=== PATIENT | female | born 1990 | race Caucasian/White ===

== ENCOUNTER 2024-09-07 22:18 | Emergency (ER) | payer MEDICAID, SELFPAY ==
[2024-09-07 22:20] VITALS: BP 168/115
--- NOTE | 2024-09-07 22:59 | ED.MUSCINJ ---
HPI-Injury
General
Chief Complaint: Musculo-Skeletal Complaint
Source: patient
Exam Limitations: none
Time Seen by Provider: 09/07/24 22:52
Nursing documentation reviewed up to this point in time: agreed with
History of Present Illness-Injury
Initial Injury comments:
34-year-old female [place] when she stepped in a hole and twisted her right ankle. She has swelling in the lateral aspect of her ankle and cannot weight-bear without significant pain
Past History
Past History
ED Past Medical History: Asthma
ED Past Surgical History: Tonsilectomy
Social History
Tobacco: Smoker
Alcohol: None
Drug: None
Personal: Single
Living: with family
Employment: Not employed
Family History
Family History: Other (Colon cancer, prostate cancer, meningioma, coronary disease)
Review of Systems
Review of Systems
Allergies reviewed?: Yes
All Other Systems: ROS reviewed and negative except as documented in HPI and ROS
Musculoskeletal: Reports other (Right ankle pain and swelling)
Skin: Reports no symptoms
Musculoskeletal Injury Exam
Musculoskeletal Injury Exam
Right Ankle:
Pain with Movement?: Moderate
Tender to palpation?: Moderate
Soft tissue swelling?: Moderate (Laterally)
External deformity and angulation?: None
Strain- Sprain- Tear (Connective tissue injury)?: Moderate
Crepitus with movement?: No
Joint instability?: No
Malalignment/deformity?: No
Range of motion: Limited
Distal skin color and temperature: normal-warm & good color
Capillary Refill: normal
Normal distal neurovascular exam?: Yes
Phy Exam
Physical Exam
Physical Exam:
PHYSICAL EXAMINATION:
General: no apparent distress, not acutely ill
Neuro: alert and oriented.
Psychiatric: well kept. interactive and cooperative
Musculoskeletal: Moves with ease
Skin: Warm, pink.
Injury Course
Orders/Labs/Results
Orders:
Orders
09/07/24 22:26
CR Ankle - Right Min 3 Views * Urgent
Comment:
Reason For Exam: fall, injury
CR Foot - Right Min 3 Views Urgent
Comment:
Reason For Exam: fall, injury
MDM/Problems Addressed
Differential Diagnosis Includes:
Sprain versus fracture ankle
MDM/Problems Addressed:
34-year-old female states she was [place] earlier today when she stepped in a hole and twisted her right ankle. She has swelling in the lateral aspect of her ankle and cannot weight-bear without significant pain
X-ray right foot and ankle: Initially read by this examiner: No acute fracture, lateral soft tissue swelling.
Ortho boot applied and patient states ankle was more painful so it was removed
Milan wrap and air splint applied and pt does not want them, she declines when crutches offered. States she's been walking on it all day and will rest and elevate over the weekend.
Milan wrap applied.
Referred to orthopedics as needed.
*Critical Care Note
Total Time (30-74mins, 75-104mins- exclusive of procedures): Not Applicable
ED Attending Note
-
Portions of this chart may have been created with voice recognition software.� Occasional wrong word or��sound alike� substitutions may have occurred due to the inherent limitations of voice recognition software.
Discharge Plan
Departure
Patient Disposition: Home (Routine Discharge)
Date of Disposition: 09/07/24
Time of Disposition: 23:03
Patient with high blood pressure during this ER visit?: No
Condition: Good
Discharge Problem:
Right ankle sprain
Instructions: Using Cold for Pain, Ankle Sprain ED
Prescriptions:
No Action
cyclobenzaprine 10 MG tablet
10 mg PO HSPRN PRN (Reason: sleep)
Hair, Skin, Nails with Biotin 7.5-7.5-1,250 mg-unit-mcg Tablet,Chewable
1 tab PO DAILY
dibucaine 1 APPLIC ointment
1 applic topical TID PRN (Reason: hemorrhoid)
Rx Instructions:
HEMORRHOIDAL PAIN
ondansetron 4 mg tablet,disintegrating
4 mg PO Q8H Qty: 9 0RF
meclizine [Antivert] 25 mg tablet,chewable
25 mg PO Q8HPRN PRN (Reason: nausea or vertigo) Qty: 15 0RF
Referrals:
Yuri Gonzalez MD [Active] - As needed
Activity Restrictions/Additional Instructions:
As we discussed, Wear the milan wrap as needed for comfort, support, swelling
See the orthopedic doctor if not a LOT BETTER in two weeks.
Tylenol or Ibuprofen as needed for pain.
Interventions
Interventions:
*Risk Screen - Suicide Last Done: 09/07/24 22:24
*General Assessment Last Done: 09/07/24 23:37
*Neglect/Abuse Screening Last Done: 09/07/24 22:24
*ED COVID-19 Vaccine History Last Done: 09/07/24 22:24
*Nursing Disposition Last Done: 09/07/24 23:39
ED-Musculoskeletal Assessment Last Done: 09/07/24 23:37
Discharge Date and Time
Discharge Date/Time: 09/07/24 23:40
Print Language: DOMINICAN
[2024-09-07 23:39] VITALS: BP 136/88
== END 2024-09-07 23:40 | disposition home or self-care (01) ==
LOC: EMR 22:18
PROVIDERS: EMERGENCY PHYSICIAN Emergency Medicine; FAMILY PHYSICIAN General Practice
DX: S93.401A Sprain of unspecified ligament of right ankle, initial encounter (principal); X50.1XXA Overexertion from prolonged static or awkward postures, initial encounter; J45.909 Unspecified asthma, uncomplicated; F17.200 Nicotine dependence, unspecified, uncomplicated; Y93.01 Activity, walking, marching and hiking; Z82.49 Family history of ischemic heart disease and other diseases of the circulatory system
CPT/HCPCS: 99283; 73610; 73630

== ENCOUNTER 2025-01-10 20:32 | Emergency (ER) | payer MEDICAID, SELFPAY ==
[2025-01-10 20:34] VITALS: BP 159/107
--- NOTE | 2025-01-10 23:57 | ED.GENMED ---
History of Present Illness
General
Chief Complaint: Skin Problem
Time Seen by Provider: 01/10/25 23:44
History of Present Illness
History of Present Illness:
34-year-old female presents the emergency department for evaluation of urticarial skin lesions on the hands and feet beginning yesterday. She has a history of intermittent urticaria that have been developing frequently since September without
obvious trigger. Denies any new soaps, detergents, topical products, or medications. She is on daily famotidine and fexofenadine hydrochloride as well as as needed hydroxyzine at the discretion of her primary care physician. She reports despite
these medications she is remains itchy. Denies any difficulty breathing or chest tightness
Past History
Past History
ED Past Medical History: Asthma
ED Past Surgical History: Tonsilectomy
Social History
Tobacco: Smoker
Alcohol: None
Drug: None
Personal: Single
Living: with family
Employment: Not employed
Family History
Family History: Other (Colon cancer, prostate cancer, meningioma, coronary disease)
Review of Systems
Review of Systems
Allergies reviewed?: Yes
Phy Exam
Physical Exam
Physical Exam:
GEN: Well appearing, NAD, WDWN
HEENT: Oral mucosa moist, no scleral icterus
Cardiac: Regular rate
Lung: No respiratory distress, no tachypnea
MSK: No gross deformity or injuries
Skin: Good color, no pallor or jaundice, urticarial lesions widespread to bilateral hands and feet, they do involve the palms and soles, spreading up to the upper extremities, scant abdominal involvement
Neuro: AO x3, moves all extremities freely
Psych: Calm, cooperative
Course
Orders/Labs/Results
Orders:
Orders
01/10/25 23:57
Dexamethasone Sod Phosphate [Decadron] 10 mg IM NOW STA
Vital Signs
Initial and Last Documented VS:
Initial Vital Signs
Temp Pulse Resp BP Pulse Ox
98.9 F 92 18 159/107 98
01/10/25 20:34 01/10/25 20:34 01/10/25 20:34 01/10/25 20:34 01/10/25 20:34
Last Documented Vital Signs
Temp Pulse Resp BP Pulse Ox
98.9 F 92 18 159/107 98
01/10/25 20:34 01/10/25 20:34 01/10/25 20:34 01/10/25 20:34 01/10/25 20:34
MDM/Problems Addressed
MDM/Problems Addressed:
Unclear etiology to patient's symptoms, will treat with steroids, she has outpatient allergy follow-up in just over 1 month
*Critical Care Note
Total Time (30-74mins, 75-104mins- exclusive of procedures): Not Applicable
ED Attending Note
-
Portions of this chart may have been created with voice recognition software.� Occasional wrong word or��sound alike� substitutions may have occurred due to the inherent limitations of voice recognition software.
Discharge Plan
Departure
Patient Disposition: Home (Routine Discharge)
Date of Disposition: 01/10/25
Time of Disposition: 23:58
Patient with high blood pressure during this ER visit?: No
Discharge Problem:
Urticaria
Instructions: Hives
Prescriptions:
New
prednisone 20 mg tablet
60 mg PO DAILY 6 Days Qty: 18 0RF
No Action
cyclobenzaprine 10 MG tablet
10 mg PO HSPRN PRN (Reason: sleep)
Hair, Skin, Nails with Biotin 7.5-7.5-1,250 mg-unit-mcg Tablet,Chewable
1 tab PO DAILY
dibucaine 1 APPLIC ointment
1 applic topical TID PRN (Reason: hemorrhoid)
Rx Instructions:
HEMORRHOIDAL PAIN
ondansetron 4 mg tablet,disintegrating
4 mg PO Q8H Qty: 9 0RF
meclizine [Antivert] 25 mg tablet,chewable
25 mg PO Q8HPRN PRN (Reason: nausea or vertigo) Qty: 15 0RF
Referrals:
Becca Ramirez, DO [Family Provider] -
Interventions
Interventions:
*Risk Screen - Suicide Last Done: 01/10/25 20:34
*General Assessment Last Done: 01/10/25 20:34
*Neglect/Abuse Screening Last Done: 01/10/25 20:34
*ED COVID-19 Vaccine History Last Done: 01/10/25 20:34
*Nursing Disposition Last Done: 01/11/25 00:17
ED-Skin Assessment Last Done: 01/11/25 00:16
Discharge Date and Time
Discharge Date/Time: 01/11/25 00:17
Print Language: ROMANIAN
[2025-01-11] MEDS: DECADRON 10 MG IM (00:06)
== END 2025-01-11 00:17 | disposition home or self-care (01) ==
LOC: EMR 20:32
PROVIDERS: EMERGENCY PHYSICIAN Student in an Organized Health Care Education/Training Program; FAMILY PHYSICIAN Family Medicine
DX: L50.9 Urticaria, unspecified (principal); J45.909 Unspecified asthma, uncomplicated; F17.200 Nicotine dependence, unspecified, uncomplicated
CPT/HCPCS: 96372; 99284

== ENCOUNTER 2025-03-18 20:26 | Emergency (ER) | payer OTHER, SELFPAY ==
[2025-03-18 20:37] VITALS: BP 141/101
[2025-03-18 21:13] LABS: Hematocrit 40.6 % (37.0-47.0); Hemoglobin 12.6 g/dL (12.0-16.0); Mean Corpuscular Hgb 22.7 pg (27.0-31.0); Mean Platelet Volume 8.9 fL (7.4-10.4); Platelet Count 480 10^3/uL (130-400); Red Blood Cell Count 5.56 10^6/uL (4.20-5.40); Red Cell Dist. Width 16.4 % (11.5-14.5); White Blood Cell Count 10.8 10^3/uL (4.8-10.8)
[2025-03-18 21:25] LABS: ALT (SGPT) 17 U/L (0-35); AST (SGOT) 17 U/L (14-36); Albumin 4.6 g/dl (3.5-5.0); Alkaline Phosphatase 57 U/L (38-126); Blood Urea Nitrogen 13 mg/dl (7-17); Calcium 9.8 mg/dl (8.4-10.2); Carbon Dioxide 25 mmol/L (22-30); Chloride 104 mmol/L (98-107); Glucose 91 mg/dl (70-99); Potassium 4.8 mmol/L (3.5-5.1); Sodium 140 mmol/L (135-145); Total Bilirubin 0.5 mg/dl (0.2-1.3); Total Protein 7.8 g/dl (6.3-8.2); eGFR > 60.00
[2025-03-18 21:30] LABS: % Basophils 0.8 % (0-2); % Eosinophils 2.6 % (0-6); % Immature Granulocytes 0.4 % (0-0.5); % Lymphocytes 42.2 % (20.5-51.1); % Monocytes 6.7 % (1.7-9.3); % Neutrophils 47.3 % (42.2-75.2); Absolute Basophils 0.1 10^3/uL (0-0.2); Absolute Eosinophils 0.3 10^3/uL (0-0.7); Absolute Lymphocytes 4.6 10^3/uL (1.2-3.4); Absolute Monocytes 0.7 10^3/uL (0.1-0.6); Absolute Neutrophils 5.1 10^3/uL (1.4-6.5); Nucleated Red Blood Cells % 0 %
[2025-03-18 21:37] LABS: Erythrocyte Sed Rate 14 mm/hour (0-20)
--- NOTE | 2025-03-18 22:59 | ED.GENMED ---
History of Present Illness
General
Chief Complaint: Skin Problem
Source: patient and records
Exam Limitations: none
Time Seen by Provider: 03/18/25 22:47
Nursing documentation reviewed up to this point in time: agreed with
History of Present Illness
History of Present Illness:
35-year-old female with history as documented notable for recurrent urticaria/hives presents to the emergency department for evaluation of hives and pruritus. Patient has had recurrent hives and follows with an ergonomics consultant. She says that she has
been doing intermittent prednisone when hives flareup. She says that 11 days ago she started with hives once again. She spoke with her ergonomics consultant who prescribed a prednisone taper starting at 40 mg daily�she took this for 4 days but did not have
any improvement and so dose was increased to 60 mg x 5 days; she took total of 9 days worth of prednisone but she says symptoms have worsened despite this and so she stopped taking prednisone. She has also been taking antihistamines but having
trouble controlling her pruritus and hives have continued so she came to the ER. She has not had any cough or breathing difficulties, wheezing. She denies any GI symptoms. She denies any oral lesions. She denies any other complaints. She has
not had any new exposures�no new skin care products, detergents, etc.
Past History
Past History
ED Past Medical History: Asthma
ED Past Surgical History: Tonsilectomy
Social History
Tobacco: Smoker
Alcohol: None
Drug: None
Personal: Single
Living: with family
Employment: Not employed
Family History
Family History: Other (Colon cancer, prostate cancer, meningioma, coronary disease)
Review of Systems
Review of Systems
All Other Systems: ROS reviewed and negative except as documented in HPI and ROS
Constitutional: Denies fever
Respiratory: Denies cough or trouble breathing
ABD/GI: Denies abdominal pain, nausea, vomiting or diarrhea
Skin: Reports itching and rash
Phy Exam
Physical Exam
Physical Exam:
General: Awake, alert, oriented x3; no acute distress
Head: Normocephalic, atraumatic
Eyes: Conjunctiva normal
Throat: Airway intact, handling secretions, no oral lesions
Neck: Trachea midline, supple without meningismus
Lungs: Clear to auscultation bilaterally, no wheezing, rales, rhonchi
Heart: Regular rate and rhythm, no murmurs, gallops, or rubs
Abd: Soft, non distended, nontender
Neuro: No gross deficits
Skin: Patient has scattered hives across chest, back, arms and legs, abdomen with some scattered hives along the hairline as well
Extremities: Hives but otherwise no edema and warm and with good distal perfusion
Scores
Heart Failure Risk
Heart Failure Risk Score: Not Applicable
Heart Score for Chest Pain Patients
STEMI patient?: Not applicable
Withdrawal Assessment of Alcohol
Withdrawal Assessment Completed?: Not applicable
Course
Orders/Labs/Results
Orders:
Orders
03/18/25 20:57
C-Reactive Protein Urgent
Complete Blood Count/With Diff Urgent
Comprehensive Metabolic Panel Urgent
Sed Rate [Erythrocyte Sed Rate] Urgent
03/18/25 22:57
Dexamethasone Sod Phosphate [Decadron] 10 mg IM NOW STA
EPINEPHrine PF [Adrenalin] 0.3 mg IM NOW STA
Loratadine [Claritin] 10 mg PO NOW STA
03/18/25 23:21
Ondansetron Orally Disint [Zofran Odt (Orally Disintegrating)] 4 mg .ROUTE .STK-MED ONE
03/18/25 23:24
Ondansetron Orally Disint [Zofran Odt (Orally Disintegrating)] 4 mg PO NOW STA
Abnormal Lab Results
03/18/25
20:57
RBC 5.56 H 10^6/uL
(4.20-5.40)
MCV 73.0 L fL
(81.0-99.0)
MCH 22.7 L pg
(27.0-31.0)
MCHC 31.0 L g/dL
(33.0-37.0)
RDW 16.4 H %
(11.5-14.5)
Plt Count 480 H 10^3/uL
(130-400)
Absolute Lymphs (auto) 4.6 H 10^3/uL
(1.2-3.4)
Absolute Monos (auto) 0.7 H 10^3/uL
(0.1-0.6)
C-Reactive Protein 15.60 H mg/L
(0.0-10.00)
03/18/25 20:57
03/18/25 20:57
Vital Signs
Initial and Last Documented VS:
Initial Vital Signs
Temp Pulse Resp BP Pulse Ox
36.8 C 94 19 141/101 100
03/18/25 20:37 03/18/25 20:37 03/18/25 20:37 03/18/25 20:37 03/18/25 20:37
Last Documented Vital Signs
Temp Pulse Resp BP Pulse Ox
36.8 C 88 18 141/101 95
03/18/25 20:37 03/19/25 00:25 03/19/25 00:25 03/18/25 20:37 03/19/25 00:25
MDM/Problems Addressed
Differential Diagnosis Includes:
Autoimmune process, postviral urticaria, allergic exposure
MDM/Problems Addressed:
35-year-old female presents with urticaria�has had recurrent episodes chronically. This episode is not responding to steroids or antihistamines. She has no respiratory or GI symptoms to suggest anaphylaxis however given failure to respond to
conservative measures and concern for hypersensitivity type reaction, I think a trial of intramuscular epinephrine is not unreasonable for some acute relief. Can also give IM Decadron and treat with Zyrtec. Reassess after the above.
No significant improvement with epinephrine or other medications here. Patient does not want to continue steroids because she feels they are not helping. She has already been using antihistamines. I explained that we can trial some topical
medications for pruritus. She should follow-up with her ergonomics consultant and datawarehouse developer. Spoke about return precautions all questions answered.
*Pulse Oximetry
Patient hypoxic: no
*Critical Care Note
Total Time (30-74mins, 75-104mins- exclusive of procedures): Not Applicable
Data Reviewed
Source: patient and records
ED Attending Note
-
Portions of this chart may have been created with voice recognition software.� Occasional wrong word or��sound alike� substitutions may have occurred due to the inherent limitations of voice recognition software.
Discharge Plan
Departure
Patient Disposition: Home (Routine Discharge)
Date of Disposition: 03/19/25
Time of Disposition: 00:46
Patient with high blood pressure during this ER visit?: Yes
Discharge Problem:
Urticaria
Instructions: Chronic hives
Prescriptions:
New
calamine phenolated Lotion
1 applic topical TID PRN (Reason: itching) Qty: 177 0RF
lidocaine 5 % adhesive patch,medicated
1 patch topical DAILY Qty: 15 0RF
No Action
cyclobenzaprine 10 MG tablet
10 mg PO HSPRN PRN (Reason: sleep)
Hair, Skin, Nails with Biotin 7.5-7.5-1,250 mg-unit-mcg Tablet,Chewable
1 tab PO DAILY
dibucaine 1 APPLIC ointment
1 applic topical TID PRN (Reason: hemorrhoid)
Rx Instructions:
HEMORRHOIDAL PAIN
ondansetron 4 mg tablet,disintegrating
4 mg PO Q8H Qty: 9 0RF
meclizine [Antivert] 25 mg tablet,chewable
25 mg PO Q8HPRN PRN (Reason: nausea or vertigo) Qty: 15 0RF
prednisone 20 mg tablet
60 mg PO DAILY 6 Days Qty: 18 0RF
Referrals:
Becca Ramirez, DO [Family Provider] - Follow up in 5-7 days
Activity Restrictions/Additional Instructions:
Thank you for visiting the Emergency Department at [facility].
1. Please schedule a follow up appointment as directed. Call first thing tomorrow morning to make an appointment.
2. If indicated, please take your medications as instructed and indicated on discharge paperwork.
3. If any of your symptoms do not improve, or persist, or become more severe within 6-12 hours, please return to the emergency department for further care.
4. Please return to the emergency department if you develop a headache, neck pain/stiffness, fever greater than 100.4F, chest pain, shortness of breath, persistent nausea, vomiting, slurred speech, difficulty walking, numbness/tingling, weakness,
signs of infection or any other symptoms that are worrisome to you.
Please call [phone] if you have any questions.
Interventions
Interventions:
*Risk Screen - Suicide Last Done: 03/18/25 20:41
*General Assessment Last Done: 03/18/25 20:41
*Neglect/Abuse Screening Last Done: 03/18/25 20:41
*ED COVID-19 Vaccine History Last Done: 03/18/25 20:41
ED-Skin Assessment Last Done: 03/18/25 22:47
Discharge Date and Time
Print Language: KINYARWANDA
[2025-03-18] MEDS: ADRENALIN 0.3 MG IM (23:09)
[2025-03-18] MEDS: CLARITIN 10 MG PO (23:10)
[2025-03-18] MEDS: DECADRON 10 MG IM (23:10)
[2025-03-18] MEDS: ZOFRAN ODT (ORALLY DISINTEGRATING) 4 MG PO (23:24)
--- NOTE | 2025-03-19 00:23 | EDRN ---
patient states that she feels like her hives are still the same and itchy, informed Dr. Garay
== END 2025-03-19 01:11 | disposition home or self-care (01) ==
LOC: EMR 20:26
PROVIDERS: Emergency Medicine; EMERGENCY PHYSICIAN Emergency Medicine; FAMILY PHYSICIAN Family Medicine
DX: L50.9 Urticaria, unspecified (principal); L29.9 Pruritus, unspecified; R03.0 Elevated blood-pressure reading, without diagnosis of hypertension; J45.909 Unspecified asthma, uncomplicated; K58.9 Irritable bowel syndrome, unspecified; F41.9 Anxiety disorder, unspecified; F32.A Depression, unspecified; F60.3 Borderline personality disorder; M47.816 Spondylosis without myelopathy or radiculopathy, lumbar region; F17.200 Nicotine dependence, unspecified, uncomplicated; Z91.51 Personal history of suicidal behavior; Z88.1 Allergy status to other antibiotic agents; Z91.030 Bee allergy status; Z91.018 Allergy to other foods
CPT/HCPCS: 99284; 96372 ×2; 80053; 85025; 85652; 86140

== ENCOUNTER 2025-03-21 10:33 | Emergency (ER) | payer OTHER, SELFPAY ==
[2025-03-21 10:44] VITALS: BP 119/88
--- NOTE | 2025-03-21 12:48 | ED.GENMED ---
History of Present Illness
General
Chief Complaint: Skin Problem
Source: patient
Time Seen by Provider: 03/21/25 12:32
History of Present Illness
History of Present Illness:
35-year-old female presents to the emergency room complaining of itchy urticarial rash. Patient has been suffering from this rash intermittently for the past 6 months or so. She has been evaluated by an leather colorer. She has been taking Diana,
courses of steroids and famotidine without improvement. At this point she really does not want to take steroids any longer because they do not seem to help and she is concerned about side effects. Patient has been seen here in the emergency room
intermittently for this. She was seen here couple days ago had a dose of IM epi which did help for a day or 2. The rash has returned. She called her leather colorer today and was unable to speak with them. She denies any shortness of breath. She
denies any throat or mouth swelling. She denies any nausea or vomiting.
Past History
Past History
ED Past Medical History: Asthma
ED Past Surgical History: Tonsilectomy
Social History
Tobacco: Smoker
Alcohol: None
Drug: None
Personal: Single
Living: with family
Employment: Not employed
Family History
Family History: Other (Colon cancer, prostate cancer, meningioma, coronary disease)
Phy Exam
Physical Exam
Physical Exam:
General: Awake, Alert, Oriented X3. No acute distress.
Vitals: unremarkable
Head: Atraumatic
Eyes: Pupils equal, EOMI
Throat: Airway intact, no exudates, no angioedema
Neck: Trachea midline
Lungs: Clear and equal b/l
Heart: Regular rate, no murmurs
Neuro: Nonfocal
Skin: Warm, dry, diffuse small urticarial lesions.
Extremities: pulses equal b/l, no edema
Course
Orders/Labs/Results
Orders:
Orders
03/21/25 12:46
EPINEPHrine PF [Adrenalin] 0.3 mg IM NOW STA
03/21/25 12:47
HydrOXYZINE [Atarax] 25 mg PO NOW STA
Vital Signs
Initial and Last Documented VS:
Initial Vital Signs
Temp Pulse Resp BP Pulse Ox
97.7 F 90 18 119/88 98
03/21/25 10:44 03/21/25 10:44 03/21/25 10:44 03/21/25 10:44 03/21/25 10:44
Last Documented Vital Signs
Temp Pulse Resp BP Pulse Ox
97.7 F 85 20 132/79 96
03/21/25 10:44 03/21/25 13:03 03/21/25 13:03 03/21/25 14:00 03/21/25 14:00
MDM/Problems Addressed
Differential Diagnosis Includes:
Chronic urticaria, eczema, viral rash
MDM/Problems Addressed:
Patient presents with an exacerbation of urticaria. Patient feels somewhat better after an IM injection of epinephrine. Atarax has made her tired and may be helped her itching some. I did discuss her presentation with her leather colorer, Dr. Shaffer.
She recommends the patient take a short course of steroids. Patient feels like the steroids have not really helped and she is concerned about side effects and therefore will not take steroids. Dr. Anderosn informing that the patient is now approved
for a biologic to be given in the allergy office. They just have to receive the medication and they will be able to schedule her appointment.
*Pulse Oximetry
Patient hypoxic: no
*Critical Care Note
Total Time (30-74mins, 75-104mins- exclusive of procedures): Not Applicable
ED Attending Note
-
Portions of this chart may have been created with voice recognition software.� Occasional wrong word or��sound alike� substitutions may have occurred due to the inherent limitations of voice recognition software.
Discharge Plan
Departure
Patient Disposition: Home (Routine Discharge)
Date of Disposition: 03/21/25
Time of Disposition: 14:02
Patient with high blood pressure during this ER visit?: Yes
Condition: Good
Discharge Problem:
Urticaria
Instructions: Chronic hives
Prescriptions:
New
lorazepam [Ativan] 1 mg tablet
1 mg PO BID PRN (Reason: intractable itching) Qty: 5 0RF
No Action
Hair, Skin, Nails with Biotin 7.5-7.5-1,250 mg-unit-mcg Tablet,Chewable
1 tab PO DAILY
ondansetron 4 mg tablet,disintegrating
4 mg PO Q8H Qty: 9 0RF
prednisone 20 mg tablet
60 mg PO DAILY 6 Days Qty: 18 0RF
calamine phenolated Lotion
1 applic topical TID PRN (Reason: itching) Qty: 177 0RF
lidocaine 4 % cream
1 applic topical QID PRN (Reason: itching) Qty: 15 0RF
Referrals:
Becca Ramirez, DO [Family Provider] -
Stand Alone Forms: Return to Work
Interventions
Interventions:
*Risk Screen - Suicide Last Done: 03/21/25 10:44
*General Assessment Last Done: 03/21/25 10:44
*Neglect/Abuse Screening Last Done: 03/21/25 10:44
*ED- Fall Risk Assessment Last Done: 03/21/25 12:52
*ED COVID-19 Vaccine History Last Done: 03/21/25 10:44
*Nursing Disposition Last Done: 03/21/25 14:17
ED-Skin Assessment Last Done: 03/21/25 12:52
Discharge Date and Time
Discharge Date/Time: 03/21/25 14:19
Print Language: KINYARWANDA
[2025-03-21 12:52] VITALS: BMI 39.2
[2025-03-21] MEDS: ADRENALIN 0.3 MG IM (12:54)
[2025-03-21] MEDS: ATARAX 25 MG PO (12:54)
[2025-03-21 12:57] VITALS: BP 148/82
[2025-03-21 13:00] VITALS: BP 128/97
[2025-03-21 13:03] VITALS: BP 128/97
[2025-03-21 14:00] VITALS: BP 132/79
== END 2025-03-21 14:19 | disposition home or self-care (01) ==
LOC: EMR 10:33
PROVIDERS: EMERGENCY PHYSICIAN Emergency Medicine; FAMILY PHYSICIAN Family Medicine
DX: L50.9 Urticaria, unspecified (principal); J45.909 Unspecified asthma, uncomplicated; F17.200 Nicotine dependence, unspecified, uncomplicated
CPT/HCPCS: 96372; 99284

== ENCOUNTER → 2025-04-26 13:27 | Outpatient (REF) | payer OTHER, SELFPAY | LOC: RCS 13:27 | PROVIDERS: ATTENDING PHYSICIAN Internal Medicine Cardiovascular Disease; FAMILY PHYSICIAN Family Medicine | DX: R06.02 Shortness of breath (principal) | CPT/HCPCS: 93017; 93350; Q9957 ==

== ENCOUNTER 2025-10-11 08:17 | Emergency (ER) | payer OTHER, SELFPAY ==
[2025-10-11 08:20] VITALS: BP 143/108
--- NOTE | 2025-10-11 09:30 | ED.GENMED ---
History of Present Illness
<Dominga Muñiz MD, Resident - Last Filed: 10/11/25 13:04>
General
Chief Complaint: Abdominal Symptoms
Source: patient
Exam Limitations: none
Time Seen by Provider: 10/11/25 09:28
Nursing documentation reviewed up to this point in time: agreed with
History of Present Illness
History of Present Illness:
35yo F with a hx of asthma, GERD, and BPD who presents with subacute high volume diarrhea & vomiting.
Began having watery diarrhea 2 days prior, which has persisted. Non-bloody, aside from occasional staining/pain from known hemorrhoids. Last night, pt also began experiencing nausea/vomiting, with 5 episodes overnight. Vomitus nonblood, nonbilious.
Has been experiencing shaking chills and intermittent sweats; did not ever take temperature at home. Denies abdominal pain other than generalized cramping preceding diarrhea. Denies CP/SOB. Endorses racing heart. Limited PO intake since yesterday.
Denies any sick contacts, interaction with kids, unusual meals, recent travel, changes to medications. Works as a veterinary tech.
Takes famotidine, bupropion, zepbound, & xolair.
Past History
<Dominga Muñiz MD, Resident - Last Filed: 10/11/25 13:04>
Past History
ED Past Medical History: Asthma and Psychiatric
ED Past Surgical History: Tonsilectomy
Social History
Tobacco: Smoker
Alcohol: None
Drug: None
Personal: Single
Living: with family
Employment: Not employed
Family History
Family History: Other (Colon cancer, prostate cancer, meningioma, coronary disease)
Review of Systems
<Dominga Muñiz MD, Resident - Last Filed: 10/11/25 13:04>
Review of Systems
Allergies reviewed?: Yes
All Other Systems: ROS reviewed and negative except as documented in HPI and ROS
Constitutional: Reports chills
EENT: Reports no symptoms
Respiratory: Reports no symptoms
Cardiac: Reports palpitations
ABD/GI: Reports abdominal pain, nausea, vomiting and diarrhea
: Reports no symptoms
Musculoskeletal: Reports no symptoms
Skin: Reports no symptoms
Neurological: Reports no symptoms
Psychiatric: Reports no symptoms
Phy Exam
<Dominga Muñiz MD, Resident - Last Filed: 10/11/25 13:04>
General Physical Exam
General Presentation: moderate distress
General age: appears stated age
General Skin: warm and dry
General Habitus: normal
General Mental: alert
General Hydration: dry mucous membranes
Cardiovascular Exam
Cardiovascular Exam: regular rate/rhythm and no edema
Pulmonary Exam
Pulmonary Exam: no respiratory distress
Gastrointestinal Exam
Gastrointestinal Exam: non tender, soft and non distended
Neurological Exam
Neurological Exam: alert
Skin Exam
Skin Exam: normal color
Psychiatric Exam
Psychiatric Exam: normal mood/affect
Course
<Dominga Muñiz MD, Resident - Last Filed: 10/11/25 13:04>
Orders/Labs/Results
Orders:
Orders
10/11/25 10:05
Ondansetron Orally Disint [Zofran Odt (Orally Disintegrating)] 4 mg PO Q8HPRN PRN
Test Result ONCE
10/11/25 10:06
0.9% Sodium Chloride 1000 ml [Nss] 1,000 ml IV BOLUS
10/11/25 10:08
Complete Blood Count/With Diff Urgent
Comprehensive Metabolic Panel Urgent
HCG, Serum Qualitative Screen Urgent
Lipase Urgent
10/11/25 11:36
C DIFF [C difficile Antigen & Toxins] Stat
DEBI Source: Feces/Stool
Specimen Description:
Date Specimen was Collected: 10/11/25
Time Specimen was Collected: 11:35
10/11/25 11:40
Add On - Microbiology Urgent
Tests Added?: stool culture
10/11/25 12:49
Acetaminophen [Tylenol] 650 mg PO NOW STA
10/11/25 12:55
0.9% Sodium Chloride 1000 ml [Nss] 1,000 ml IV BOLUS
Abnormal Lab Results
10/11/25
10:08
RBC 5.58 H 10^6/uL
(4.20-5.40)
MCV 79.2 L fL
(81.0-99.0)
MCH 25.1 L pg
(27.0-31.0)
MCHC 31.7 L g/dL
(33.0-37.0)
RDW 14.6 H %
(11.5-14.5)
Plt Count 418 H 10^3/uL
(130-400)
Neutrophils % 75.3 H %
(42.2-75.2)
Lymphocytes % 18.4 L %
(20.5-51.1)
ALT 40 H U/L
(0-35)
Total Protein 8.7 H g/dl
(6.3-8.2)
10/11/25 10:08
10/11/25 10:08
Vital Signs
Initial and Last Documented VS:
Initial Vital Signs
Temp Pulse Resp BP Pulse Ox
97.3 F 101 18 143/108 99
10/11/25 08:20 10/11/25 08:20 10/11/25 08:20 10/11/25 08:20 10/11/25 08:20
Last Documented Vital Signs
Temp Pulse Resp BP Pulse Ox
97.3 F 101 18 143/108 99
10/11/25 08:20 10/11/25 08:20 10/11/25 08:20 10/11/25 08:20 10/11/25 09:43
<Mario Mayer, DO - Last Filed: 10/11/25 10:40>
Orders/Labs/Results
Orders:
Orders
10/11/25 10:05
Ondansetron Orally Disint [Zofran Odt (Orally Disintegrating)] 4 mg PO Q8HPRN PRN
Test Result ONCE
10/11/25 10:06
0.9% Sodium Chloride 1000 ml [Nss] 1,000 ml IV BOLUS
10/11/25 10:08
Complete Blood Count/With Diff Urgent
Comprehensive Metabolic Panel Urgent
HCG, Serum Qualitative Screen Urgent
Lipase Urgent
10/11/25 11:36
C DIFF [C difficile Antigen & Toxins] Stat
DEBI Source: Feces/Stool
Specimen Description:
Date Specimen was Collected: 10/11/25
Time Specimen was Collected: 11:35
10/11/25 11:40
Add On - Microbiology Urgent
Tests Added?: stool culture
10/11/25 12:49
Acetaminophen [Tylenol] 650 mg PO NOW STA
10/11/25 12:55
0.9% Sodium Chloride 1000 ml [Nss] 1,000 ml IV BOLUS
Abnormal Lab Results
10/11/25
10:08
RBC 5.58 H 10^6/uL
(4.20-5.40)
MCV 79.2 L fL
(81.0-99.0)
MCH 25.1 L pg
(27.0-31.0)
MCHC 31.7 L g/dL
(33.0-37.0)
RDW 14.6 H %
(11.5-14.5)
Plt Count 418 H 10^3/uL
(130-400)
Neutrophils % 75.3 H %
(42.2-75.2)
Lymphocytes % 18.4 L %
(20.5-51.1)
ALT 40 H U/L
(0-35)
Total Protein 8.7 H g/dl
(6.3-8.2)
10/11/25 10:08
10/11/25 10:08
Vital Signs
Initial and Last Documented VS:
Initial Vital Signs
Temp Pulse Resp BP Pulse Ox
97.3 F 101 18 143/108 99
10/11/25 08:20 10/11/25 08:20 10/11/25 08:20 10/11/25 08:20 10/11/25 08:20
Last Documented Vital Signs
Temp Pulse Resp BP Pulse Ox
97.3 F 101 18 143/108 99
10/11/25 08:20 10/11/25 08:20 10/11/25 08:20 10/11/25 08:20 10/11/25 09:43
<Dominga Muñiz MD, Resident - Last Filed: 10/11/25 13:04>
MDM/Problems Addressed
Differential Diagnosis Includes:
Infectious gastroenteritis (norovirus vs. staph or b cereus toxin vs. bacterial less likely)
R/o , pancreatitis
MDM/Problems Addressed:
- 1L NSS bolus
- CBC, CMP
- bHCG
- Lipase
- Zofran PRN
- Consider stool studies, c diff
<Dominga Muñiz MD, Resident - Last Filed: 10/11/25 13:04>
*Pulse Oximetry
SaO2: 99
Oxygen Mode of Delivery: Room air
Patient hypoxic: no
*Critical Care Note
Total Time (30-74mins, 75-104mins- exclusive of procedures): Not Applicable
Data Reviewed
Review of Other/Old Records Reveals: Labs
<Dominga Muñiz MD, Resident - Last Filed: 10/11/25 13:04>
Update Note
Update Note:
bHCG negative
pt recalls that a coworker had similar sx last week - likely viral gastroenteritis transmission source
will treat conservatively w sx mgmt
RN endorsing BRB in stool with clot; pt endorsing hemorrhoids; will add on stool cx to eval for shiga/salmonella
C diff negative
Discussed likely viral gastroenteritis, did trial of PO fluid intake, discussed zofran & bentyl for sx mgmt at home, giving 1L additional NSS bolus prior to discharge home
ED Attending Note
<Dominga Muñiz MD, Resident - Last Filed: 10/11/25 13:04>
-
Portions of this chart may have been created with voice recognition software.� Occasional wrong word or��sound alike� substitutions may have occurred due to the inherent limitations of voice recognition software.
<Mario Mayer, - Last Filed: 10/11/25 10:40>
ED Attending Note
Patient seen and examined by attending physician: Yes
I performed a history and physical exam of patient and discussed management with resident, I reviewed resident's note and agree with documented findings and plan of care.: Yes
ED Attending Note:
I have seen and evaluated the patient with a [id number] encounter. I have spoken to the resident and involved in the medical history, the physical exam, medical decision making.
Evaluation and management service: agree unless noted differently below.
Results interpretation: agree unless noted differently below.
Focused HPI: 35-year-old female presenting with nausea, vomiting and diarrhea. This been ongoing for a few days. Although she initially denied sick contacts, she does acknowledge that she had a coworker recently with similar symptoms. She denies
any recent travel or antibiotic use
Physical exam: Mildly dry mucous membranes. Abdomen soft and nontender
Medical Decision Making: Given the benign abdomen, doubt significant intra-abdominal pathology. Symptoms are likely related to viral gastroenteritis. Will treat symptomatically and obtain basic blood work. If patient provide stool sample, will
check stool studies
Discharge Plan
Departure
Patient Disposition: Home (Routine Discharge)
Date of Disposition: 10/11/25
Time of Disposition: 12:56
Patient with high blood pressure during this ER visit?: No
Covid-19: Not Applicable
Discharge Problem:
Gastroenteritis
Prescriptions:
New
ondansetron 4 mg tablet,disintegrating
4 mg PO TIDPRN PRN (Reason: nausea/vomiting) 7 Days Qty: 21 0RF
dicyclomine 20 mg tablet
20 mg PO TID 7 Days Qty: 21 0RF
No Action
Hair, Skin, Nails with Biotin 7.5-7.5-1,250 mg-unit-mcg Tablet,Chewable
1 tab PO DAILY
ondansetron 4 mg tablet,disintegrating
4 mg PO Q8H Qty: 9 0RF
prednisone 20 mg tablet
60 mg PO DAILY 6 Days Qty: 18 0RF
calamine phenolated Lotion
1 applic topical TID PRN (Reason: itching) Qty: 177 0RF
lidocaine 4 % cream
1 applic topical QID PRN (Reason: itching) Qty: 15 0RF
lorazepam [Ativan] 1 mg tablet
1 mg PO BID PRN (Reason: intractable itching) Qty: 5 0RF
Referrals:
Jaxon Tineo DO [Family Provider, Internal Medicine]
Activity Restrictions/Additional Instructions:
You were seen in the ED for gastroenteritis. It is most likely viral and will self-resolve. In the meantime, we are prescribing you zofran for nausea management and bentyl for cramping abdominal pain management.
Your labs were normal and your stool test was negative for c diff.
Return if you have severely worsening abdominal pain or you have a significant increase in blood in your stools & you feel lightheaded.
Interventions
Interventions:
*Risk Screen - Suicide Last Done: 10/11/25 08:20
*General Assessment Last Done: 10/11/25 08:20
*Neglect/Abuse Screening Last Done: 10/11/25 08:20
*ED- Fall Risk Assessment Last Done: 10/11/25 09:43
*ED COVID-19 Vaccine History Last Done: 10/11/25 09:43
*ED Influenza Vaccine History Last Done: 10/11/25 09:43
MG-Aarxrj-Rvafuzbfox Assessment Last Done: 10/11/25 09:43
Discharge Date and Time
Print Language: RWANDAN
[2025-10-11] MEDS: NSS 1000 IV ×2 (10:10→12:59)
[2025-10-11] MEDS: ZOFRAN ODT (ORALLY DISINTEGRATING) 4 MG PO (10:13)
[2025-10-11 10:17] LABS: Hematocrit 44.2 % (37.0-47.0); Hemoglobin 14.0 g/dL (12.0-16.0); Mean Corp Hgb Conc. 31.7 g/dL (33.0-37.0); Mean Corpuscular Volume 79.2 fL (81.0-99.0); Nucleated Red Blood Cells % 0 %; Platelet Count 418 10^3/uL (130-400); Red Cell Dist. Width 14.6 % (11.5-14.5)
[2025-10-11 10:26] LABS: HCG, Serum Qualitative Screen Negative
[2025-10-11 10:36] LABS: ALT (SGPT) 40 U/L (0-35); AST (SGOT) 25 U/L (14-36); Albumin 4.7 g/dl (3.5-5.0); Alkaline Phosphatase 69 U/L (38-126); Blood Urea Nitrogen 8 mg/dl (7-17); Calcium 9.9 mg/dl (8.4-10.2); Carbon Dioxide 24 mmol/L (22-30); Chloride 106 mmol/L (98-107); Glucose 87 mg/dl (70-99); Potassium 4.1 mmol/L (3.5-5.1); Sodium 138 mmol/L (135-145); Total Protein 8.7 g/dl (6.3-8.2); eGFR > 60.00
[2025-10-11 11:03] LABS: Lipase 151 U/L (23-300)
[2025-10-11] MEDS: TYLENOL 650 MG PO (12:52)
[2025-10-11 13:35] VITALS: BP 131/93
== END 2025-10-11 13:52 | disposition home or self-care (01) ==
LOC: EMR 08:17
PROVIDERS: EMERGENCY PHYSICIAN Student in an Organized Health Care Education/Training Program; FAMILY PHYSICIAN Internal Medicine
DX: K52.9 Noninfective gastroenteritis and colitis, unspecified (principal); K64.9 Unspecified hemorrhoids; J45.909 Unspecified asthma, uncomplicated; K21.9 Gastro-esophageal reflux disease without esophagitis; F60.3 Borderline personality disorder; F17.200 Nicotine dependence, unspecified, uncomplicated
CPT/HCPCS: 99284; 96360; 96361; 80053; 83690; 84703; 85025; 87045; 87046; 87077; 87324; 87427; 87449